=== PATIENT | male | born 1990 | race Caucasian/White ===

== ENCOUNTER 2020-02-17 19:44 | Emergency (ER) | payer SELFPAY ==
[~2020-02-17] VITALS: Ht 165 cm; Wt 101.4 kg
--- OUTSIDE RECORDS SUMMARY | 2020-02-17 19:52 | XMS REPORT | Continuity of Care Document ---
Author Organization Unknown Address Unknown Phone Unavailable Allergies There is no data. Medications There is no data. Problems There is no data. Procedures There is no data. Results There is no data. Encounters ACCT No. Visit Date/Time Discharge Status Pt. Type Provider Facility Loc./Unit Complaint [id number] 11/25/2019 10:10:00 11/25/2019 23:59:5 9 [facility] Outpatient [facility]
[2020-02-17] MEDS ORDERED: NS IV 1000 ML 1,000 ML IV SCH (20:10)
[2020-02-17] MEDS ORDERED: ONDANSETRON 4 MG/2 ML (SDV) Z0FRAN IVP ONE (20:15)
--- NOTE | 2020-02-17 20:17 | ED GI ---
General Chief Complaint: Abdominal/GI Problems Stated Complaint: DIZZINESS, N/V Nursing Triage Note: Patient ambulatory to ER room 5 with complaint of nausea, vomiting and dizziness x 3 days. Patient denies any abdominal pain. Sepsis Screen: No Definite Risk History of Present Illness Date Seen by Provider: Feb 17, 2020 Time Seen by Provider: 19:55 Initial Comments 29 year old male presents for nausea, vomiting multiple times today and vertigo. No diarrhea. No abdominal pain or history of chronic health problems. History of GERD. No known COVID-19 exposure but he works in retail. He is wearing a mask and socially distancing. No change in smell or taste, cough, or fevers. Timing/Duration: 2-3 Days Location: Epigastric Associated Symptoms: No Fever/Chills; Nausea/Vomiting; No Shortness of Air Allergies and Home Medications Allergies Coded Allergies: No Known Drug Allergies (Unverified , 02/17/20) Patient Home Medication List Home Medication List Reviewed: Yes Review of Systems Review of Systems Constitutional: see HPI; No fever; malaise, weakness Gastrointestinal: See HPI, Nausea, Poor Appetite, Vomiting All Other Systems Reviewed Negative Unless Noted: Yes Past Ulnpgbd-Nbjtzs-Tuymci Hx Past Med/Social Hx: Reviewed Nursing Past Med/Soc Hx Patient Social History Alcohol Use: Occasionally Uses Recreational Drug Use: No Smoking Status: Current Everyday Smoker Type Used: Electronic/Vapor 2nd Hand Smoke Exposure: No Recent Foreign Travel: No Contact w/Someone Who Travel: No Recent Infectious Disease Expo: No Recent Hopitalizations: No Physical Abuse: No Sexual Abuse: No Mistreated: No Fear: No Immunizations Up To Date PED Vaccines UTD: Yes Seasonal Allergies Seasonal Allergies: No Past Medical History Surgeries: No Respiratory: No Cardiac: No Neurological: No Genitourinary: No Gastrointestinal: Yes Gastroesophageal Reflux Musculoskeletal: No Endocrine: No HEENT: No Cancer: No Psychosocial: No Integumentary: No Blood Disorders: No Physical Exam Vital Signs Vital Signs - First Documented 02/17/20 19:48 Temp 37.2 Pulse 80 Resp 16 B/P (MAP) 153/104 (120) Pulse Ox 98 O2 Delivery Room Air Capillary Refill : Less Than 3 Seconds Height/Weight/BMI Height: '" Weight: lbs. oz. kg; 37.00 BMI Method: General Appearance: WD/WN, no apparent distress HEENT: PERRL/EOMI, normal ENT inspection, TMs normal, pharynx normal, other (oral mucosa pink and moist) Neck: non-tender, full range of motion, supple, normal inspection Respiratory: chest non-tender, lungs clear, normal breath sounds Cardiovascular: normal peripheral pulses, regular rate, rhythm Gastrointestinal: normal bowel sounds, soft; No distended, No guarding, No rebound; tenderness (trace over epigastric region) Neurologic/Psychiatric: no motor/sensory deficits, alert, normal mood/affect, oriented x 3 Skin: normal color, warm/dry Progress/Results/Core Measures Results/Orders Lab Results Laboratory Tests Test 02/17/20 19:50 02/17/20 20:25 Range/Units White Blood Count 8.9 4.3-11.0 10^3/uL Red Blood Count 5.29 4.35-5.85 10^6/uL Hemoglobin 15.7 13.3-17.7 G/DL Hematocrit 45 40-54 % Mean Corpuscular Volume 86 80-99 FL Mean Corpuscular Hemoglobin 30 25-34 PG Mean Corpuscular Hemoglobin Concent 35 32-36 G/DL Red Cell Distribution Width 12.2 10.0-14.5 % Platelet Count 351 130-400 10^3/uL Mean Platelet Volume 9.4 7.4-10.4 FL Neutrophils (%) (Auto) 68 42-75 % Lymphocytes (%) (Auto) 25 12-44 % Monocytes (%) (Auto) 7 0-12 % Eosinophils (%) (Auto) 0 0-10 % Basophils (%) (Auto) 0 0-10 % Neutrophils # (Auto) 6.0 1.8-7.8 X 10^3 Lymphocytes # (Auto) 2.2 1.0-4.0 X 10^3 Monocytes # (Auto) 0.6 0.0-1.0 X 10^3 Eosinophils # (Auto) 0.0 0.0-0.3 10^3/uL Basophils # (Auto) 0.0 0.0-0.1 10^3/uL Sodium Level 141 135-145 MMOL/L Potassium Level 3.6 3.6-5.0 MMOL/L Chloride Level 105 98-107 MMOL/L Carbon Dioxide Level 22 21-32 MMOL/L Anion Gap 14 5-14 MMOL/L Blood Urea Nitrogen 11 7-18 MG/DL Creatinine 1.24 0.60-1.30 MG/DL Estimat Glomerular Filtration Rate > 60 BUN/Creatinine Ratio 9 Glucose Level 111 H 70-105 MG/DL Calcium Level 9.6 8.5-10.1 MG/DL Corrected Calcium 8.5-10.1 MG/DL Total Bilirubin 0.6 0.1-1.0 MG/DL Aspartate Amino Transf (AST/SGOT) 15 5-34 U/L Alanine Aminotransferase (ALT/SGPT) 12 0-55 U/L Alkaline Phosphatase 73 40-136 U/L Total Protein 8.0 6.4-8.2 GM/DL Albumin 4.9 H 3.2-4.5 GM/DL Amylase Level 46 25-125 U/L Lipase 7 L 8-78 U/L Urine Color YELLOW Urine Clarity CLEAR Urine pH 6.0 5-9 Urine Specific Mar Lin 1.020 1.016-1.022 Urine Protein NEGATIVE NEGATIVE Urine Glucose (UA) NEGATIVE NEGATIVE Urine Ketones NEGATIVE NEGATIVE Urine Nitrite NEGATIVE NEGATIVE Urine Bilirubin NEGATIVE NEGATIVE Urine Urobilinogen 1.0 < = 1.0 MG/DL Urine Leukocyte Esterase NEGATIVE NEGATIVE Urine RBC (Auto) NEGATIVE NEGATIVE Urine RBC 0-2 /HPF Urine WBC 0-2 /HPF Urine Crystals PRESENT H /LPF Urine Amorphous Sediment RARE YESSICA URATES H /LPF Urine Bacteria NEGATIVE /HPF Urine Casts NONE /LPF Urine Mucus SMALL H /LPF Urine Culture Indicated NO My Orders Orders - RICARDO DOUGLAS Cbc With Automated Diff (02/17/20 20:10) Comprehensive Metabolic Panel (02/17/20 20:10) Ua Culture If Indicated (02/17/20 20:10) Ed Iv/Invasive Line Start (02/17/20 20:10) Ns Iv 1000 Ml (Sodium Chloride 0.9%) (02/17/20 20:10) Ondansetron Injection (Zofran Injectio (02/17/20 20:15) Amylase (02/17/20 20:10) Lipase (02/17/20 20:10) Rx-Ondansetron Po (Rx-Zofran Po) (02/17/20 21:07) Medications Given in ED Current Medications Medications Dose Ordered Sig/Fran Route Start Time Stop Time Status Last Admin Dose Admin Ondansetron HCl 4 mg ONCE ONCE IVP 7/16/20 20:15 02/17/20 20:16 DC 02/17/20 20:23 4 MG Vital Signs/I&O 02/17/20 02/17/20 19:48 21:13 Temp 37.2 37.2 Pulse 80 79 Resp 16 16 B/P (MAP) 153/104 (120) 145/98 (120) Pulse Ox 98 98 O2 Delivery Room Air Room Air Blood Pressure Mean: 120 Progress Progress Note : Time: 19:55 Progress Note Patient seen and evaluated, will obtain labs and give 1 L of normal saline per IV and Zofran 4 mg IV. 2039 nausea improved. Has not vomiting since arrival. No complaints. CBC and CMP essentially normal. 2099 patient reports to be feeling much better, no further nausea or vomiting. Discharge instructions and return precautions reviewed. Departure Impression Primary Impression: Nausea and vomiting Qualified Codes: R11.2 - Nausea with vomiting, unspecified Disposition: HOME, SELF-CARE Condition: Stable Departure-Patient Inst. Decision time for Depature: 20:40 Referrals: NO,LOCAL PHYSICIAN (PCP/Family) Primary Care Physician Patient Instructions: Nausea and Vomiting, Adult (DC) Add. Discharge Instructions: Clear liquid diet for the next 6-8 hours then advance to bland diet as tolerated. Increase water intake. Use the Zofran every 6-8 hours as needed for nausea and vomiting. Follow-up with your primary care provider if symptoms are not improving or worsen. Return to the emergency department for new, urgent health care needs. All discharge instructions reviewed with patient and/or family. Voiced understanding. RICARDO DOUGLAS Feb 17, 2020 20:17
[2020-02-17 20:20] LABS: BASOPHILS % (AUTO) 0 % (0-10); EOSINOPHILS % (AUTO) 0 % (0-10); HEMATOCRIT 45 % (40-54); HEMOGLOBIN 15.7 G/DL (13.3-17.7); LYMPHOCYTES # (AUTO) 2.2 X 10^3 (1.0-4.0); LYMPHOCYTES % (AUTO) 25 % (12-44); MEAN CORPUSCULAR HEMOGLOBIN 30 PG (25-34); MEAN CORPUSCULAR HGB CONC 35 G/DL (32-36); MEAN CORPUSCULAR VOLUME 86 FL (80-99); MEAN PLATELET VOLUME 9.4 FL (7.4-10.4); MONOCYTES # (AUTO) 0.6 X 10^3 (0.0-1.0); MONOCYTES % (AUTO) 7 % (0-12); NEUTROPHILS % (AUTO) 68 % (42-75); PLATELET COUNT 351 10^3/uL (130-400); RED CELL DISTRIBUTION WIDTH 12.2 % (10.0-14.5); WHITE BLOOD COUNT 8.9 10^3/uL (4.3-11.0)
[2020-02-17 20:25] LABS: ALBUMIN 4.9 GM/DL (3.2-4.5)
[2020-02-17 20:26] LABS: AMYLASE 46 U/L (25-125); CHLORIDE 105 MMOL/L (98-107); POTASSIUM 3.6 MMOL/L (3.6-5.0); SODIUM 141 MMOL/L (135-145)
[2020-02-17 20:27] LABS: CALCIUM 9.6 MG/DL (8.5-10.1)
[2020-02-17 20:28] LABS: GLUCOSE 111 MG/DL (70-105)
[2020-02-17 20:29] LABS: CARBON DIOXIDE 22 MMOL/L (21-32)
[2020-02-17 20:30] LABS: BILIRUBIN,TOTAL 0.6 MG/DL (0.1-1.0)
[2020-02-17 20:30] LABS: BILIRUBIN,URINE NEGATIVE (NEGATIVE); CLARITY,URINE CLEAR; COLOR,URINE YELLOW; GLUCOSE, URINE (UA) NEGATIVE (NEGATIVE); KETONES,URINE NEGATIVE (NEGATIVE); LEUKOCYTE ESTERASE ,URINE NEGATIVE (NEGATIVE); NITRITE,URINE NEGATIVE (NEGATIVE); PROTEIN,URINE NEGATIVE (NEGATIVE)
[2020-02-17 20:31] LABS: ALKALINE PHOSPHATASE 73 U/L (40-136); CREATININE SERUM 1.24 MG/DL (0.60-1.30); GFR ESTIMATED > 60
[2020-02-17 20:32] LABS: BUN/CREATININE RATIO 9
[2020-02-17 20:34] LABS: ALANINE AMINOTRANSFERASE 12 U/L (0-55)
[2020-02-17 20:35] LABS: LIPASE 7 U/L (8-78)
[2020-02-17 21:01] LABS: AMORPHOUS SEDIMENT,UR RARE AMOR URATES /LPF; BACTERIA,URINE NEGATIVE /HPF; RBC,URINE 0-2 /HPF; WBC,URINE 0-2 /HPF
[2020-02-17] MEDS ORDERED: RX-ONDANSETRON 4 MG ODT (ZOFRAN) PPK #4 PO STA (21:07)
[2020-02-17 21:13] VITALS: BP 145/98
== END 2020-02-17 21:12 | disposition home or self-care (01) ==
LOC: EDUNIT# 19:44 → ER 19:46
DX: R11.2 Nausea with vomiting, unspecified (principal); F17.290 Nicotine dependence, other tobacco product, uncomplicated
CPT/HCPCS: 36415; 80053; 81000; 82150; 83690; 85025

== ENCOUNTER 2023-02-17 15:52 | Emergency (ER) | payer SELFPAY ==
--- NOTE | 2023-02-17 16:07 | ED Head Injury ---
General Chief Complaint: Head/Cervical Problems Stated Complaint: POSS HEAD INJURY Nursing Triage Note: PT AMB TO RM 7 WITH CC OF HEAD INJURY 1 HR INFORMATICS SPEC. PT REPORTS WAS WORKING ON HIS CAR WHEN HE HIT HIS HEAD ON HIS CAR. PT REPORTS NAUSEA, BLURRED VISION AND BOWMAN. DENIES LOC. A&OX4 Source: patient Exam Limitations: no limitations History of Present Illness Date Seen by Provider: Feb 17, 2023 Time Seen by Provider: 16:04 Initial Comments Patient is a 32-year-old male who presents to ED with head injury. Patient reports injury to the top part of his head. States 45 minutes ago his work underneath his car. He stood up quickly hit the top part of his head on a piece of metal. Patient had no loss conscious but immediately saw floaters in his vision. Reports bilateral blurry vision since the head injury. Reports inc reasing head pain difficulty with coordination and nausea. Denies any vomiting. Denies any neck pain or on blood thinners. Reports bruising swelling to the top part of his head. Denies taking thing for pain. Patient denies neck pain, chest pain, cough, shortness of breath, abdominal pain, unilateral muscle weakness or sensory changes Allergies and Home Medications Allergies Coded Allergies: No Known Drug Allergies (Unverified , 02/17/20) Patient Home Medication List Home Medication List Reviewed: Yes Ibuprofen (Ibuprofen) 600 Mg Tablet, 600 MG PO Q8H Prescribed by: PHILOMENA MORROW on 02/17/23 1633 Review of Systems Review of Systems Constitutional: No chills, No diaphoresis; dizziness; No fever, No malaise, No weakness Eyes: Denies Blurred Vision, Denies Drainage, Denies Decreased Acuity Ears, Nose, Mouth, Throat: denies ear pain, denies ear discharge Respiratory: No cough, No dyspnea on exertion, No short of breath, No stridor, No wheezing Cardiovascular: No chest pain Gastrointestinal: No abdominal pain, No diarrhea; nausea; No vomiting Musculoskeletal: No back pain, No joint pain, No joint swelling, No muscle pain Skin: change in color Psychiatric/Neurological: Headache All Other Systems Reviewed Negative Unless Noted: Yes Past Fxjnbar-Yeltgt-Zckeif Hx Patient Social History Use of E-Cig and/or Vaping dev: Yes E-Cig or Vaping type used: Nicotine Use of E-Cig and/or Vaping Bib: Current Everyday User Substance use?: No Alcohol Use?: No Pt feels they are or have been: No Immunizations Up To Date PED Vaccines UTD: Yes Seasonal Allergies Seasonal Allergies: No Past Medical History Surgeries: No Respiratory: No Cardiac: No Neurological: No Genitourinary: No Gastrointestinal: Yes Gastroesophageal Reflux Musculoskeletal: No Endocrine: No HEENT: No Cancer: No Psychosocial: No Integumentary: No Blood Disorders: No Physical Exam Vital Signs Vital Signs - First Documented 02/17/23 15:57 Temp 36.4 Pulse 79 Resp 18 B/P (MAP) 139/84 (102) Pulse Ox 97 O2 Delivery Room Air Capillary Refill : Less Than 3 Seconds Height, Weight, BMI Height: '" Weight: lbs. oz. kg; 37.00 BMI Method: General Appearance: WD/WN, no apparent distress HEENT: PERRL/EOMI, normal ENT inspection, TMs normal, pharynx normal, other (Top of the scalp tenderness with contusion. Small abrasion) Neck: non-tender, full range of motion, supple, normal inspection Cardiovascular: regular rate, rhythm, no edema, no gallop, no JVD Respiratory: chest non-tender, lungs clear, normal breath sounds, no respiratory distress, no accessory muscle use Gastrointestinal: normal bowel sounds, non tender, soft, no organomegaly Back: normal inspection, no CVA tenderness, no vertebral tenderness Extremities: normal range of motion, non-tender, normal inspection, no pedal edema Psychiatric: alert, oriented x 3 Crainal Nerves: normal hearing, normal speech, PERRL Coordination/Gait: normal finger to nose Motor/Sensory: no motor deficit, no sensory deficit Dania Coma Score Best Eye Response: (4) Open Spontaneously Best Verbal Response: (5) Oriented Best Motor Response: (6) Obeys Commands Dania Total: 15 Progress/Results/Core Measures Results/Orders My Orders Orders - DELILAH DOOLEY Ct Head Wo (02/17/23 16:02) Hydrocodone/Apap 5/325 Tablet (Lortab 5 (02/17/23 16:15) Medications Given in ED Current Medications Medications Dose Ordered Sig/Fran Route Start Time Stop Time Status Last Admin Dose Admin Acetaminophen/ Hydrocodone Bitart 1 ea ONCE ONCE PO 02/17/23 16:15 02/17/23 16:16 DC 02/17/23 16:34 1 EA Vital Signs/I&O 02/17/23 02/17/23 15:57 16:40 Temp 36.4 Pulse 79 79 Resp 18 18 B/P (MAP) 139/84 (102) 139/84 Pulse Ox 97 97 O2 Delivery Room Air Room Air Blood Pressure Mean: 102 Departure Communication (PCP) Patient presents to ED for head injury. This occurred 45 minutes before arrival. GCS 15. Alert and orient x3. Nontrauma activation. Contusion abrasion to the top part of the head. Patient with concussion-like symptoms. Likely more related to concussion however patient was requesting imaging as he states he is never experienced anything to this extent. Patient has no focal neural deficits but does have nausea dizziness, headache, unsteady gait. Patient without any cervical midline tenderness. CT scan head was negative for acute abnormality. Received 1 dose of pain medication. Discussed concern for concussion. Recommend rest at home. Avoid any strenuous activities, bright lights. If continued symptoms recommend resting at home. Provided work note. Follow-up your PCP in 2 days. Will discharge with anti-inflammatories. Recommend ice to the top part of the head for the swelling. If any worsening symptoms such as severe head pain, projectile vomiting, confusion to return back to ED. Impression Primary Impression: Head injury Disposition: 01 HOME, SELF-CARE Condition: Stable Departure-Patient Inst. Decision time for Depature: 16:28 Referrals: [facility] [place],LOCAL PHYSICIAN (PCP) Primary Care Physician Patient Instructions: Concussion, Adult ED Add. Discharge Instructions: All discharge instructions reviewed with patient and/or family. Voiced understanding. Scripts Ibuprofen (Ibuprofen) 600 Mg Tablet 600 MG PO Q8H for PAIN, #20 TAB 0 Refills Prov: DELILAH DOOLEY 02/17/23 Work/School Note: Work Release Form Date Seen in the Emergency Department: Feb 17, 2023 Return to Work: Feb 19, 2023 DELILAH DOOLEY Feb 17, 2023 16:07
[2023-02-17] MEDS ORDERED: HYDROcodone/APAP 5 MG/325 MG (LORTAB) TAB PO ONE (16:15)
--- NOTE | 2023-02-17 16:18 | Diagnostic Imaging Report ---
PROCEDURE: CT head without contrast. TECHNIQUE: Multiple contiguous axial images were obtained through the brain without the use of intravenous contrast. Auto Exposure Controls were utilized during the CT exam to meet ALARA standards for radiation dose reduction. INDICATION: Head injury The ventricles are normal in size, shape and position. There are no masses or hemorrhages. There are no extra-axial fluid collections. IMPRESSION: No acute abnormality seen in head Dictated by: Dictated on workstation # [id number]
[2023-02-17] MEDS ORDERED: IBUP-1773 PO (16:33)
[2023-02-17 16:40] VITALS: BP 139/84
== END 2023-02-17 16:40 | disposition home or self-care (01) ==
LOC: EDUNIT# 15:52 → ER 15:55
DX: S09.90XA Unspecified injury of head, initial encounter (principal); S00.03XA Contusion of scalp, initial encounter; F17.290 Nicotine dependence, other tobacco product, uncomplicated; W22.8XXA Striking against or struck by other objects, initial encounter; Y92.59 Other trade areas as the place of occurrence of the external cause; Y99.0 Civilian activity done for income or pay
CPT/HCPCS: 70450